=== PATIENT | male | born 1995 | race Asian ===

== ENCOUNTER → 2017-02-07 | Outpatient (CLI) | payer OTHER | END | disposition home or self-care (01) | LOC: MI 01-31 09:00 | PROC: BP38ZZZ Magnetic Resonance Imaging (MRI) of Right Shoulder (ICD-10-PCS; principal; 2017-02-07) | DX: M25.511 Pain in right shoulder (principal) ==

== ENCOUNTER → 2020-03-05 | Outpatient (CLI) | payer OTHER | END | disposition home or self-care (01) | LOC: MI 12:30 | PROVIDERS: ATTEND Podiatrist Foot & Ankle Surgery | PROC: BQ3HZZZ Magnetic Resonance Imaging (MRI) of Left Ankle (ICD-10-PCS; principal; 2020-03-05) | DX: M79.9 Soft tissue disorder, unspecified (principal); M67.472 Ganglion, left ankle and foot; R60.9 Edema, unspecified ==

== ENCOUNTER → 2020-05-17 | Outpatient (CLI) | payer OTHER | LOC: MI 08:24 | PROVIDERS: ATTEND Family Medicine | PROC: BQ3HZZZ Magnetic Resonance Imaging (MRI) of Left Ankle (ICD-10-PCS; principal; 2020-05-17) | PROC: BQ3MZZZ Magnetic Resonance Imaging (MRI) of Left Foot (ICD-10-PCS; 2020-05-17) | DX: M67.472 Ganglion, left ankle and foot (principal); M79.9 Soft tissue disorder, unspecified; R60.9 Edema, unspecified ==

== ENCOUNTER → 2020-07-09 | Outpatient (CLI) | payer OTHER | END | disposition home or self-care (01) | LOC: MI 14:57 | PROVIDERS: ATTEND Podiatrist Foot & Ankle Surgery | PROC: BP38ZZZ Magnetic Resonance Imaging (MRI) of Right Shoulder (ICD-10-PCS; principal; 2020-07-09) | DX: M75.81 Other shoulder lesions, right shoulder (principal) ==